=== PATIENT | female | born 1985 | race Caucasian/White ===

== ENCOUNTER → 2017-03-05 | Outpatient (CLI) | payer OTHER ==
--- NOTE | 2017-03-05 16:24 | XR ---
EXAMINATION TYPE: XR ankle complete LT, XR foot complete LT DATE OF EXAM: 03/05/2017 CLINICAL HISTORY: Left foot and ankle pain after stepping twisting injury. TECHNIQUE: Frontal, lateral and oblique images of the left ankle and foot are obtained. COMPARISON: None. FINDINGS: There is no acute fracture/dislocation evident in the left ankle. The ankle mortise appea rs within normal limits. Some thickening of the distal Achilles tendon is present but there appears to be persistent inferior extension to the superior calcaneus, finding is presumed postsurgical. Over lying soft tissue appears unremarkable. There is no acute fracture or dislocation evident in the left foot. The joint spaces in the left alec t are preserved. Overlying soft tissue is unremarkable. IMPRESSION: There is no acute fracture or dislocation in the left ankle or foot.
== END | disposition home or self-care (01) ==
LOC: RADXRMAIN 16:00
PROVIDERS: ATTEND Emergency Medicine
DX: S93.402A Sprain of unspecified ligament of left ankle, initial encounter (principal); S93.602A Unspecified sprain of left foot, initial encounter

== ENCOUNTER → 2017-10-16 | Outpatient (CLI) | payer BC, OTHER ==
--- NOTE | 2017-10-16 19:00 | XR ---
EXAMINATION TYPE: XR ribs LT DATE OF EXAM: 10/16/2017 COMPARISON: NONE HISTORY: Rib contusion TECHNIQUE: 4 views FINDINGS: I see no pleural effusion or pneumothorax. Left lung is clear of infiltrate. I see no rib f racture. IMPRESSION: Negative left rib exam.
== END | disposition home or self-care (01) ==
LOC: RADXRMAIN 18:23
PROVIDERS: ATTEND Physician Assistant
DX: S20.20XA Contusion of thorax, unspecified, initial encounter (principal)

== ENCOUNTER → 2019-07-12 | Outpatient (CLI) | payer BC, OTHER ==
--- NOTE | 2019-07-12 13:04 | XR ---
EXAMINATION TYPE: XR wrist complete RT DATE OF EXAM: 07/12/2019 COMPARISON: None HISTORY: 25.531 TECHNIQUE: 4 view right wrist FINDINGS: No acute fractures or dislocations are evident. Soft tissues are normal. Joint spaces are p reserved There is pain at the anatomic snuff box, a nuclear medicine bone scan could be performed for addition al evaluation. Follow up exams can be performed 7-10 days from acute trauma for continued pain. IMPRESSION: 1. Normal 4 view right wrist
== END | disposition home or self-care (01) ==
LOC: LABWHC1 12:35
PROVIDERS: ATTEND Physician Assistant
DX: M25.531 Pain in right wrist (principal)